=== PATIENT | female | born 1945 | race Caucasian/White ===

== ENCOUNTER 2018-04-18 09:51 | Emergency (ER) | payer OTHER ==
--- NOTE | 2018-04-18 10:03 | PDOC ---
History of Present Illness <Charbel Ruvalcaba - Last Filed: 04/18/18 12:32> - General History Source: Patient Exam Limitations: No Limitations - History of Present Illness Initial Comments: 04/18/18 10:23 72 year old female with PMH CAD, 1 stent, HLD presented to ED for left knee pain since last night. She stated she has chronic bilateral knee pain x2 years and lately her left knee has been bothering her more. She stated last night she got out of bed to use the restroom, and as she was walking she felt a pop in her left knee and since then has been unable to bear weight or ambulate. She denied fever, chills, vomiting, chest pain, shortness of breath. She flew from [place] to [facility] this week, 2.5 hour flight. She denied hormone use, surgery<4 weeks, active CA<6 months, hx DVT/PE. She stated she did not take any medication for pain today. Allergies: NKDA <Meena Melendez - Last Filed: 04/18/18 12:44> - General Chief Complaint: Pain, Acute Stated Complaint: LEG INJURY Time Seen by Provider: 04/18/18 10:03 Past History <PegCharbel - Last Filed: 04/18/18 12:32> <Meena Melendez - Last Filed: 04/18/18 12:44> - Past Medical History Allergies/Adverse Reactions: Allergies Allergy/AdvReac Type Severity Reaction Status Date / Time No Known Allergies Allergy Unverified 04/18/18 10:18 Home Medications: Ambulatory Orders Aspirin [ASA -] 162 mg PO DAILY 04/18/18 Sertraline HCl 20 mg PO DAILY 04/18/18 Review of Systems - Review of Systems Able to Perform ROS?: Yes Comments:: 04/18/18 10:29 General: denied fever, chills, night sweats, generalized weakness. HEENT: denied sore throat, rhinorrhea, ear pain. Heart: denied chest pain, palpitations, syncope, lower extremity swelling, diaphoresis. Respiratory: denied shortness of breath, cough, sputum production, hemoptysis. Abdomen: denied abdominal pain, nausea, vomiting, diarrhea, constipation, blood in stool. : denied dysuria, increased urinary frequency, hematuria, urinary incontinence , flank pain. Back: denied back pain. Musculoskeletal: admitted to left knee pain, left knee swelling. Neurological: denied headache, dizziness, numbness, tingling, weakness. Skin: denied rash, laceration, abrasion. <Elba Melendeza - Last Filed: 04/18/18 12:44> *Physical Exam - Vital Signs Last Vital Signs Temp Pulse Resp BP Pulse Ox 98.4 F 86 17 156/75 96 04/18/18 09:51 04/18/18 09:51 04/18/18 09:51 04/18/18 09:51 04/18/18 09:51 <PegCharbel - Last Filed: 04/18/18 12:32> - Physical Exam Comments: 04/18/18 10:29 Constitutional: Well-nourished, Well-developed, appearing stated age. HEENT: head is normocephalic, atraumatic. EOMI. PERRLA. Neck: supple. Full ROM. Heart: regular rhythm. no murmurs, rubs or gallops. Lungs: clear to auscultation bilaterally. no crackles, rhonchi or wheezing. no stridor. Abdomen: soft, nontender. normal bowel sounds. no rebound, guarding, masses. Extremities: left knee swollen as compared to right. pt was able to passively flex the knee, but appeared in pain. Pain upon MCL testing, no ACL/PCL/LCL/MCL ligament laxity. pt unable to bear weight. 2+ DSP bilaterally. Neurological: CN 2-12 grossly intact. Moves all four extremities. Psych: awake, alert, oriented x3. Follows commands. Answers questions appropriately. <Bárbara Melendezyla - Last Filed: 04/18/18 12:44> ED Treatment Course - RADIOLOGY Radiology Studies Ordered: Category Date Time Status HIP & PELVIS-LEFT [RAD] Stat Radiology 04/18/18 10:31 Completed - Medications Given in the ED: ED Medications Discontinued Medications Generic Name Dose Route Start Last Admin Trade Name Freq PRN Reason Stop Dose Admin Ibuprofen 600 mg 04/18/18 10:20 04/18/18 10:33 Motrin - PO 04/18/18 10:21 600 mg ONCE ONE Administration <Ou,Charbel - Last Filed: 04/18/18 12:32> Medical Decision Making - Medical Decision Making 04/18/18 10:30 72 year old female with cardiac history presented to ED for left knee pain since last night. Initial Vital Signs Temp Pulse Resp BP Pulse Ox 98.4 F 86 17 156/75 96 04/18/18 09:51 04/18/18 09:51 04/18/18 09:51 04/18/18 09:51 04/18/18 09:51 Afebrile. No tachycardia. No hypoxia. No tachypnea. Mild hypertension. Ibuprofen 600 mg ordered for pain. X-ray left knee ordered to evaluate possible fracture/joint effusion. X-ray left hp ordered to evaluate for possible fracture/dislocation. Duplex US LLE ordered to evaluate for possible DVT. 04/18/18 10:35 Left knee XR: negative for fracture/dislocation. small joint effusion noted. small fabella. Left hip XR: negative for fracture/dislocation. 04/18/18 12:23 Left duplex Lower extremity US: no DVT. Pt to be placed in knee immobilizer and discharged with ortho follow up. 04/18/18 12:43 Pt placed in knee immobilizer and given crutches and crutches education. Pt ambulate well unassisted. Pt requested pain medication. Dr. Ruvalcaba will send percocet to [facility] on [facility]. <Meena Melendez - Last Filed: 04/18/18 12:44> *DC/Admit/Observation/Transfer <Charbel Ruvalcaba - Last Filed: 04/18/18 12:32> - Discharge Dispostion Decision to Admit order: No <Meena Melendez - Last Filed: 04/18/18 12:44> Diagnosis at time of Disposition: Knee pain - Discharge Dispostion Disposition: HOME Condition at time of disposition: Stable - Referrals Referrals: Collins Null DO [Staff Physician] - - Patient Instructions Additional Instructions: You were seen today for knee pain. Your X-ray of your knee showed a small joint effusion, but no broken bones. Your X-ray of your hip showed no broken bones. Your ultrasound was negative for blood clot or DVT. Take Ibuprofen and or Tylenol over the counter for your pain, take as advised on labels. Follow up with your primary care doctor in 2-3 days, call their office friday morning and make an appointment for as soon as possible, tell them you were seen in the Emergency Department. Follow up with an orthopedic doctor in 2-3 days, I have provided you with referral for a doctor here, or you can follow up with an orthopedic doctor in [place]. You will need a MRI to fully evaluate your knee. Return to the Emergency Department for swelling of one leg more than the other, blue/white discoloration to your feet, fever, shortness of breath, chest pain. Be sure to get up and move about on the plane on your way back to [place] to prevent a blood clot.
[2018-04-18] MEDS ORDERED: IBUPROFEN 600 MG TABLET (FP) PO ONE ×2 (10:20→10:26)
[2018-04-18 10:23] VITALS: BMI 27.8
--- NOTE | 2018-04-18 11:08 | PDOC ---
Attending Attestation - Resident Resident Name: Meena Melendez - ED Attending Attestation I have performed the following: I have examined & evaluated the patient, The case was reviewed & discussed with the resident, I agree w/resident's findings & plan, Exceptions are as noted - HPI HPI: 04/18/18 11:04 72 F with h/o CAD, HLD, presenting with L knee pain. Pt reports chronic L knee pain that acutely worsened today as she was going to the bathroom. She states that she felt a sudden pop while walking, followed by difficulty ranging her L knee. Also reports pain with weightbearing. Pt denies any falls or trauma to the knee. Notes feeling a fullness in the back of the knee but no swelling anywhere else. - Physicial Exam PE: 04/18/18 11:05 "GENERAL: Awake, alert, and fully oriented, in no acute distress. HEAD: No signs of trauma EYES: PERRLA, EOMI, sclera anicteric, conjunctiva clear ENT: Auricles normal inspection, hearing grossly normal, nares patent, oropharynx clear without exudates. Moist mucosa NECK: Nontender, no stepoffs, Normal ROM, supple, no lymphadenopathy, JVD, or masses LUNGS: Breath sounds equal, clear to auscultation bilaterally. No wheezes, and no crackles HEART: Regular rate and rhythm, normal S1 and S2, no murmurs, rubs or gallops ABDOMEN: Soft, nontender, normoactive bowel sounds. No guarding, no rebound. No masses EXTREMITIES: + L knee with TTP at lateral joint line, ROM limited 2/2 pain, + swelling posterior knee with no palpable cords, no distal edema NEUROLOGICAL: Cranial nerves II through XII intact. 5/5 strength and sensation in all extremities, Normal speech, normal gait, normal cerebellar function SKIN: Warm, Dry, normal turgor, no rashes or lesions noted. - Medical Decision Making 04/18/18 11:06 72 F with L knee pain. Suspect ruptured leiva's cyst vs meniscus injury. Pt with no evidence fracture, no bony tenderness. No clinical signs of DVT other than fullness behind knee. No fevers to suggest septic arthritis. - Xray - Doppler - Pain control 04/18/18 12:32 XR and doppler negative Pt placed in knee immobilizer Instructed to f/u with ortho. Pt has orthopedist in [place], where she lives, and she will see him next week. Pt is well appearing, with normal vitals. Clinically stable for [place] at this time. I discussed the physical exam findings, ancillary test results and final diagnoses with the patient. I answered all of the patient's questions. The patient was satisfied with the care received and felt comfortable with the discharge plan and treatment plan. The patient agrees to follow up with the primary care physician within 24-72 hours.
[2018-04-18 12:42] VITALS: BP 150/77; PULSE 68; TEMP 98.5
== END 2018-04-18 12:50 | disposition home or self-care (01) ==
LOC: JER 09:51
PROC: 2W3RXYZ Immobilization of Left Lower Leg using Other Device (ICD-10-PCS; principal; 2018-04-18)
DX: M25.462 Effusion, left knee (principal); X50.1XXA Overexertion from prolonged static or awkward postures, initial encounter; Y93.01 Activity, walking, marching and hiking; Y92.89 Other specified places as the place of occurrence of the external cause; Y99.8 Other external cause status; E78.00 Pure hypercholesterolemia, unspecified; Z95.5 Presence of coronary angioplasty implant and graft
CPT/HCPCS: 29530; 73523-TC-FY; 73562-TC-LT-FY; 93971-TC; 99282-25